=== PATIENT | female | born 1950 | race Caucasian/White ===

== ENCOUNTER → 2017-03-06 | Day surgery (SDC) | payer OTHER, MEDICARE ==
[~2017-03-06] VITALS: Ht 170.2 cm; Wt 72.6 kg
[~2017-03-06] MED LIST: ASPIRIN EC81 M1 PO; LEVOTHYROXINE75 MCG PO; LISINOPRIL-HCT1 EAC2 PO; SIMVASTATIN20 M2 PO
--- NOTE | 2017-03-09 18:30 | Operative Report ---
Operative/Inv Procedure Report Surgery Date: 03/06/17 Name of Procedure: Excision of deep subfascial 3.2 cm mass from left antecubital fossa Pre-Operative Diagnosis: Subcutaneous mass left antecubital fossa Post-Operative Diagnosis: Same, deeper Estimated Blood Loss: scant Surgeon/Environmental Science Technician: GALINDO CHACKO,NABIL Leblanc Anesthesia: local monitored anesthesi Operative/Procedure Note Note: Patient placed on the OR table supine with her left arm extended after induction of anesthesia, the left arm was prepped and draped in usual sterile fashion centering at the antecubital fossa with marked this palpable lump preoperatively and had very faint edges the center was more prominent we aimed an incision along the skin lines perpendicular to the axis of the arm about 3 cm long infiltrate local anesthetic first admitted incision with a 15 blade, deepened it with cautery despite all was palpable this was completely subfascial the deep part was between the muscles on the bone, so it took time to follow it down here paying care not to injure any neurovascular bundles but eventually was dissected free completely measured 2.2 cm the area was irrigated checked for hemostasis and closed in layers using interrupted 3-0 Vicryl sutures for some of the fascia and subdermally and then 4 Monocryl subcuticular for the skin itself followed by Telfa and Tegaderm. EBL minimal lap and sponge counts correct wound expectancy clean IV fluids crystalloid complications none patient tolerated the procedure well was awakened and returned to recovery room in satisfactory condition.
== END ==
LOC: STS 03:23
DX: D21.12 Benign neoplasm of connective and other soft tissue of left upper limb, including shoulder (principal); E03.9 Hypothyroidism, unspecified; I10 Essential (primary) hypertension; I44.30 Unspecified atrioventricular block; Z87.891 Personal history of nicotine dependence; Z79.82 Long term (current) use of aspirin
CPT/HCPCS: 88305; J0690; J2250